=== PATIENT | male | born 1955 | race Caucasian/White ===

== ENCOUNTER 2023-02-19 14:09 | Outpatient (CLI) | payer MEDICARE, SELFPAY ==
[2023-02-19 20:05] LABS: Prostate Specific Antigen < 0.1 ng/mL (< OR = 4.0)
== END 2023-02-19 14:10 | disposition home or self-care (01) ==
LOC: ANHGOSHLAB 14:10
PROVIDERS: PCP Family Medicine; Visit Provider Nurse Practitioner
DX: Z12.5 Encounter for screening for malignant neoplasm of prostate (principal)
CPT/HCPCS: 36415; 84153; G0103